=== PATIENT | male | born 1960 | race Two or more races ===

== ENCOUNTER 2020-04-10 13:30 | Inpatient (IN) | payer MEDICAID, OTHER ==
[~2020-04-10] VITALS: Ht 177.8 cm; Wt 108.9 kg
[2020-04-10 18:23] LABS: Basophils # (auto) 0 10 ^3/uL (0-0.2); Basophils % (auto) 0.3 % (0.0-2.0); Eosinophils # (auto) 0 10 ^3/uL (0-0.8); Hemoglobin 13.8 g/dL (13.5-17.5); Lymphocytes # (auto) 0.3 10 ^3/uL (0.4-5.4)
[2020-04-10 18:25] LABS: Eosinophils % (auto) 0.4 % (0.0-7.0); Hematocrit 39.4 % (41.0-53.0); Mean Corpuscular Hemoglobin 38.2 pg (28.0-32.0); Mean Corpuscular Hgb Conc. 35.1 g/dL (32.0-36.0); Monocytes # (auto) 0.4 10 ^3/uL (0-1.3); Monocytes % (auto) 8.1 % (0.0-12.0); Neutrophils # (auto) 4.1 10 ^3/uL (1.6-8.6); Neutrophils % (auto) 84.2 % (37.0-80.0); Platelet Count (auto) 56 10^3/uL (140-450); Red Blood Cells 3.61 10^6/uL (4.5-5.90); Red Cell Distribution Width 14.4 % (11.8-14.3); White Blood Cell 4.9 10^3/uL (4.4-10.8)
[2020-04-10 18:39] LABS: Albumin 2.5 g/dL (3.4-5.0); Anion Gap 5 (5-15); Blood Urea Nitrogen 19 mg/dL (7-18); Calcium 8.7 mg/dL (8.5-10.1); Carbon Dioxide 24 mmol/L (21-32); Chloride 109 mmol/L (98-107); Glucose 291 mg/dL (74-106); Potassium 4.6 mmol/L (3.5-5.1); Sodium 138 mmol/L (136-145)
[2020-04-10 18:44] LABS: Blood Alcohol < 3.0 mg/dL (0-5); Magnesium 2.3 mg/dL (1.6-2.6)
[2020-04-10 18:45] LABS: Alanine Aminotransferase 40 U/L (16-61); Alkaline Phosphatase 163 U/L (45-117); Aspartate Aminotransferase 55 U/L (15-37); BUN/Creatinine Ratio 10.9; Bilirubin, Total 2.4 mg/dL (0.2-1.0); GFR African American 52 mL/min; GFR Non-African American 43 mL/min
[2020-04-10 18:52] LABS: CRP High Sensitivity 1.12 mg/dL (< 0.3)
[2020-04-11] MEDS ORDERED: NITROGLYCERIN 0.4 MG SL TAB SL PRN (01:30)
[2020-04-11] MEDS ORDERED: LACTULOSE 20Gm/30ML SOLN PO ONE (01:30)
[2020-04-11] MEDS ORDERED: MORPHINE SULF INJ 2 MG/ML SYRINGE 1ML IV PRN (01:30)
[2020-04-11] MEDS ORDERED: DEXTROSE (50%) 50ML SYRG IV PRN (01:30)
[2020-04-11] MEDS ORDERED: ONDANSETRON HCL 4 MG/2 ML VIAL IV PRN (01:30)
[2020-04-11] MEDS: SODIUM CHLORIDE 0.9% 1,000 ML IV SCH ×2 (02:05→09:37)
[2020-04-11] MEDS ORDERED: LACTULOSE 20Gm/30ML SOLN PO SCH (06:00)
[2020-04-11 06:53] LABS: Basophils # (auto) 0 10 ^3/uL (0-0.2); Eosinophils # (auto) 0.1 10 ^3/uL (0-0.8); Mean Corpuscular Hgb Conc. 34.7 g/dL (32.0-36.0); Monocytes # (auto) 0.4 10 ^3/uL (0-1.3); Neutrophils # (auto) 3.3 10 ^3/uL (1.6-8.6); Nucleated Red Blood Cells % 0.2 %; Platelet Count (auto) 61 10^3/uL (140-450); White Blood Cell 4.6 10^3/uL (4.4-10.8)
[2020-04-11 06:56] LABS: Basophils % (auto) 0.7 % (0.0-2.0); Eosinophils % (auto) 2.6 % (0.0-7.0); Hematocrit 41.4 % (41.0-53.0); Hemoglobin 14.4 g/dL (13.5-17.5); Lymphocytes # (auto) 0.7 10 ^3/uL (0.4-5.4); Lymphocytes % (auto) 15.1 % (10.0-50.0); Mean Corpuscular Hemoglobin 38.2 pg (28.0-32.0); Mean Corpuscular Volume 110.1 fL (80.0-100.0); Neutrophils % (auto) 72.6 % (37.0-80.0); Red Blood Cells 3.76 10^6/uL (4.5-5.90); Red Cell Distribution Width 14.5 % (11.8-14.3)
[2020-04-11 07:06] LABS: Potassium 4.1 mmol/L (3.5-5.1)
[2020-04-11 07:18] LABS: Albumin 2.7 g/dL (3.4-5.0); BUN/Creatinine Ratio 13.9; Calcium 9.1 mg/dL (8.5-10.1); Total Protein 7.6 g/dL (6.4-8.2)
[2020-04-11] MEDS: ACCU-CHEK COMFORT CURVE STRIP VI SCH ×2 (08:04→12:00)
[2020-04-11] MEDS: InsuLIN REG 1unit/0.01ml Soln (100units/ml) SC SCH ×2 (08:11→12:00)
[2020-04-11 09:50] VITALS: BP 128/74
== END 2020-04-11 12:11 | disposition home or self-care (01) | DRG 279 ==
LOC: ER 13:30 → EDBD 13:30 → TELE 13:31
PROVIDERS: ADMIT Hospitalist; ATTEND Hospitalist
DX: K72.90 Hepatic failure, unspecified without coma (principal); E83.41 Hypermagnesemia; K74.60 Unspecified cirrhosis of liver; N17.0 Acute kidney failure with tubular necrosis; E88.09 Other disorders of plasma-protein metabolism, not elsewhere classified; E66.01 Morbid (severe) obesity due to excess calories; Z68.34 Body mass index [BMI] 34.0-34.9, adult; Z20.828 Contact with and (suspected) exposure to other viral communicable diseases; J98.11 Atelectasis
CPT/HCPCS: 36415; 70450; 71045; 80053; 80320; 82140; 82728; 82962; 83735; 84484; 85025; 86141; 87426; 99291; G0378; J1815

== ENCOUNTER 2020-07-24 15:56 | Inpatient (IN) | payer MEDICAID ==
[~2020-07-24] VITALS: Ht 177.8 cm; Wt 122.7 kg
[2020-07-24 18:12] LABS: Eosinophils # (auto) 0.1 10 ^3/uL (0-0.8); Lymphocytes # (auto) 0.5 10 ^3/uL (0.4-5.4); Monocytes # (auto) 0.5 10 ^3/uL (0-1.3); White Blood Cell 5.1 10^3/uL (4.4-10.8)
[2020-07-24 18:14] LABS: Basophils # (auto) 0 10 ^3/uL (0-0.2); Basophils % (auto) 0.6 % (0.0-2.0); Eosinophils % (auto) 1.5 % (0.0-7.0); Hematocrit 35.7 % (41.0-53.0); Hemoglobin 12.4 g/dL (13.5-17.5); Lymphocytes % (auto) 9.3 % (10.0-50.0); Mean Corpuscular Hemoglobin 37.4 pg (28.0-32.0); Mean Corpuscular Hgb Conc. 34.7 g/dL (32.0-36.0); Mean Corpuscular Volume 107.9 fL (80.0-100.0); Neutrophils # (auto) 4.1 10 ^3/uL (1.6-8.6); Neutrophils % (auto) 79.6 % (37.0-80.0); Nucleated Red Blood Cells % 0.1 %; Platelet Count (auto) 76 10^3/uL (140-450); Red Blood Cells 3.31 10^6/uL (4.5-5.90); Red Cell Distribution Width 13.6 % (11.8-14.3)
[2020-07-24] MEDS ORDERED: cloNIDine HCL 0.1 MG TAB PO PRN (18:15)
[2020-07-24] MEDS ORDERED: MORPHINE SULF INJ 2 MG/ML SYRINGE 1ML IV PRN ×2 (18:15)
[2020-07-24] MEDS ORDERED: HYDROcodone-ACET 5/325MG TAB PO PRN (18:15)
[2020-07-24] MEDS ORDERED: ONDANSETRON HCL 4 MG/2 ML VIAL IV PRN (18:15)
[2020-07-24] MEDS ORDERED: NITROGLYCERIN 0.4 MG SL TAB SL PRN (18:15)
[2020-07-24] MEDS ORDERED: ACETAMINOPHEN 325 MG TAB PO PRN (18:15)
[2020-07-24] MEDS ORDERED: DEXTROSE (50%) 50ML SYRG IV PRN (18:15)
[2020-07-24] MEDS ORDERED: ALUM & MAG HYDROX-SIMETH LIQ(MAALOX) 30 ML PO PRN (18:15)
[2020-07-24] MEDS: SODIUM CHLORIDE 0.9% 1,000 ML IV SCH (18:19)
[2020-07-24 18:25] LABS: Albumin 2.3 g/dL (3.4-5.0); Anion Gap 9 (5-15); BUN/Creatinine Ratio 8.2; Blood Alcohol < 3.0 mg/dL (0-5); Blood Urea Nitrogen 13 mg/dL (7-18); Calcium 8.2 mg/dL (8.5-10.1); Carbon Dioxide 25 mmol/L (21-32); Chloride 103 mmol/L (98-107); GFR African American 58 mL/min; GFR Non-African American 48 mL/min; Glucose 337 mg/dL (74-106); Potassium 3.5 mmol/L (3.5-5.1); Sodium 137 mmol/L (136-145)
[2020-07-24 18:28] LABS: Lactic Acid w/Reflex 2.5 mmol/L (0.4-2.0)
[2020-07-24 18:36] LABS: Alanine Aminotransferase 27 U/L (16-61); Alkaline Phosphatase 142 U/L (45-117); Aspartate Aminotransferase 46 U/L (15-37); Total Protein 6.9 g/dL (6.4-8.2)
[2020-07-24 22:00] VITALS: BP 123/81
[2020-07-24 22:18] VITALS: BP 123/81
[2020-07-24 22:37] LABS: Urine Bacteria NONE SEEN /hpf (None Seen); Urine Blood Negative /uL (Negative); Urine Hyaline Cast FEW /lpf (0 - 2); Urine Specific Gravity 1.007 (1.001-1.035); Urine WBC 2 /hpf (0 - 3)
[2020-07-24 22:40] LABS: Amphetamine Screen, Urine NEGATIVE (NEGATIVE); Barbiturate Scree,Urine NEGATIVE (NEGATIVE); Benzodiazephine Screen, Urine NEGATIVE (NEGATIVE); Cannabinoid Screen, Urine NEGATIVE (NEGATIVE); Cocaine Screen, Urine NEGATIVE (NEGATIVE); Opiate Scree,Urine NEGATIVE (NEGATIVE); Phencyclidine Screen, Urine NEGATIVE (NEGATIVE)
[2020-07-24] MEDS ORDERED: KETOROLAC TROMETH 30 MG/ML 1ML VIAL IV PRN (22:45)
[2020-07-24] MEDS: LORazepam 2MG/ML-1ML VIAL IV PRN (23:30)
[2020-07-24] MEDS: ACCU-CHEK COMFORT CURVE STRIP VI SCH (23:41)
[2020-07-24] MEDS: InsuLIN REG 1unit/0.01ml Soln (100units/ml) SC SCH (23:45)
[2020-07-24] MEDS: CLINDAMYCIN 600MG IV 50 ML IV SCH (23:46)
[2020-07-24] MEDS: FAMOTIDINE (10MG/ML) 2ML VL IV SCH (23:46)
[2020-07-25] MEDS: methylPREDNISolone SOD SUCC 40 MG/ML VL IV SCH ×2 (00:13→06:16)
[2020-07-25] MEDS ORDERED: PNEUMOCOCCAL VACC POLYS 25 MCG/0.5 ML VIAL IM ONE (02:00)
[2020-07-25] MEDS ORDERED: ZINC220C8 PO (02:02)
[2020-07-25] MEDS ORDERED: INSUINJ18 SC (02:02)
[2020-07-25] MEDS ORDERED: ASCO500T11 PO (02:02)
[2020-07-25] MEDS ORDERED: INSU1INJ19 SC (02:02)
[2020-07-25] MEDS ORDERED: PROP60CA34 PO (02:02)
[2020-07-25] MEDS ORDERED: MAGN400T40 PO (02:02)
[2020-07-25] MEDS ORDERED: CHOL20007 PO (02:02)
[2020-07-25] MEDS ORDERED: B-COCAP23 PO (02:02)
[2020-07-25] MEDS ORDERED: SPIR100T4 PO (02:02)
[2020-07-25] MEDS ORDERED: FURO40TA4 PO (02:02)
[2020-07-25] MEDS ORDERED: LACT10PA2 PO (02:02)
[2020-07-25] MEDS ORDERED: RABE1TAB4 PO (02:02)
[2020-07-25] MEDS ORDERED: GABA-339 PO (02:02)
[2020-07-25] MEDS ORDERED: TIZA4TAB9 PO (02:02)
[2020-07-25] MEDS: LORazepam 2MG/ML-1ML VIAL IV PRN ×5 (03:30→21:17)
[2020-07-25 06:00] VITALS: BP 128/85
[2020-07-25] MEDS: ACCU-CHEK COMFORT CURVE STRIP VI SCH ×4 (06:09→22:50)
[2020-07-25] MEDS: CLINDAMYCIN 600MG IV 50 ML IV SCH (06:16)
[2020-07-25] MEDS: InsuLIN REG 1unit/0.01ml Soln (100units/ml) SC SCH ×4 (06:16→22:50)
[2020-07-25 09:00] VITALS: BP 126/68
[2020-07-25] MEDS: FAMOTIDINE (10MG/ML) 2ML VL IV SCH (11:13)
[2020-07-25] MEDS: SODIUM CHLORIDE 0.9% 1,000 ML IV SCH (11:13)
[2020-07-25] MEDS ORDERED: VANCOMYCIN PER PHARMACY 0 MG IV SCH (14:00)
[2020-07-25] MEDS ORDERED: PROPRANOLOL HCL PO SCH (14:00)
[2020-07-25] MEDS ORDERED: cefTRIAXone 1GM/50ML D5W 50 ML IV ONE (14:00)
[2020-07-25] MEDS ORDERED: VANCOMYCIN 1GM/250ML 250 ML IV ONE (14:30)
[2020-07-25] MEDS: LACTULOSE 20Gm/30ML SOLN PO SCH ×2 (15:58→22:51)
[2020-07-25 17:00] VITALS: BP 106/53
[2020-07-25] MEDS ORDERED: PANTOPRAZOLE 40 MG TAB PO SCH (17:30)
[2020-07-25] MEDS: FUROSEMIDE 40 MG TAB PO SCH ×2 (18:00→18:40)
[2020-07-25 20:57] LABS: Cholesterol 124 mg/dL (< 200); Triglycerides 85 mg/dL (< 150)
[2020-07-25 21:05] LABS: HDL Cholesterol 43 mg/dL (40-59)
[2020-07-25 22:00] VITALS: BP 113/68
[2020-07-25] MEDS ORDERED: PROPRANOLOL HCL 60 MG PO SCH (22:00)
[2020-07-25] MEDS: GABAPENTIN 300 MG CAP PO SCH (22:51)
[2020-07-26] MEDS: SODIUM CHLORIDE 0.9% 1,000 ML IV SCH (04:41)
[2020-07-26 05:00] VITALS: BP 115/79
[2020-07-26] MEDS ORDERED: VANCOMYCIN 1GM/250ML 250 ML IV SCH (05:00)
[2020-07-26 05:01] LABS: Urine Bacteria FEW /hpf (None Seen); Urine Blood 3+ /uL (Negative); Urine Hyaline Cast FEW /lpf (0 - 2); Urine Specific Gravity 1.015 (1.001-1.035); Urine WBC 66 /hpf (0 - 3)
[2020-07-26] MEDS: ACCU-CHEK COMFORT CURVE STRIP VI SCH ×2 (06:13→12:04)
[2020-07-26] MEDS: LACTULOSE 20Gm/30ML SOLN PO SCH ×2 (06:14→14:02)
[2020-07-26] MEDS: FUROSEMIDE 40 MG TAB PO SCH (06:14)
[2020-07-26] MEDS: InsuLIN REG 1unit/0.01ml Soln (100units/ml) SC SCH ×2 (06:17→12:04)
[2020-07-26 07:45] LABS: Basophils # (auto) 0 10 ^3/uL (0-0.2); Eosinophils # (auto) 0 10 ^3/uL (0-0.8); Hematocrit 34.1 % (41.0-53.0); Hemoglobin 11.7 g/dL (13.5-17.5); Monocytes # (auto) 0.6 10 ^3/uL (0-1.3)
[2020-07-26 07:47] LABS: Basophils % (auto) 0.1 % (0.0-2.0); Eosinophils % (auto) 0.3 % (0.0-7.0); Lymphocytes # (auto) 0.5 10 ^3/uL (0.4-5.4); Lymphocytes % (auto) 7.4 % (10.0-50.0); Mean Corpuscular Hemoglobin 37.6 pg (28.0-32.0); Mean Corpuscular Hgb Conc. 34.3 g/dL (32.0-36.0); Mean Corpuscular Volume 109.6 fL (80.0-100.0); Monocytes % (auto) 8.4 % (0.0-12.0); Neutrophils % (auto) 83.8 % (37.0-80.0); Platelet Count (auto) 62 10^3/uL (140-450); Red Blood Cells 3.11 10^6/uL (4.5-5.90); White Blood Cell 7.2 10^3/uL (4.4-10.8)
[2020-07-26 08:00] LABS: Calcium 8.5 mg/dL (8.5-10.1); Potassium 4.1 mmol/L (3.5-5.1)
[2020-07-26 08:02] LABS: BUN/Creatinine Ratio 17.2
[2020-07-26] MEDS ORDERED: cefTRIAXone 1GM/50ML D5W 50 ML IV SCH (09:00)
[2020-07-26 09:09] VITALS: BP 99/58
[2020-07-26] MEDS: GABAPENTIN 300 MG CAP PO SCH (09:37)
[2020-07-26] MEDS ORDERED: INSULIN LANTUS (GLARGINE) 1 /0.01ml (100units/ml) SC SCH (10:00)
[2020-07-26] MEDS ORDERED: SPIRONOLACTONE 25 MG TAB PO SCH (10:00)
[2020-07-26 12:22] LABS: LDL Cholesterol 81 mg/dL (< 100)
[2020-07-26 13:00] VITALS: BP 102/63
[2020-07-26 16:58] VITALS: BP 102/72
[2020-07-26] MEDS ORDERED: ATORVASTATIN 20 MG TAB PO SCH (22:00)
== END 2020-07-26 16:17 | disposition left against medical advice (07) | DRG 279 ==
LOC: ER 15:56 → EDBD 15:56 → TELE 18:09 → TELE-EAST 22:22
PROVIDERS: ADMIT Hospitalist; ATTEND Hospitalist
PROC: 3E0234Z Introduction of Serum, Toxoid and Vaccine into Muscle, Percutaneous Approach (ICD-10-PCS; principal; 2020-07-25)
DX: K72.90 Hepatic failure, unspecified without coma (principal); J96.01 Acute respiratory failure with hypoxia; I63.89 Other cerebral infarction; G93.41 Metabolic encephalopathy; I85.10 Secondary esophageal varices without bleeding; E44.1 Mild protein-calorie malnutrition; D68.4 Acquired coagulation factor deficiency; D69.6 Thrombocytopenia, unspecified; R56.9 Unspecified convulsions; E66.01 Morbid (severe) obesity due to excess calories; Z20.822 Contact with and (suspected) exposure to COVID-19; I12.9 Hypertensive chronic kidney disease with stage 1 through stage 4 chronic kidney disease, or unspecified chronic kidney disease; N18.9 Chronic kidney disease, unspecified; Z82.49 Family history of ischemic heart disease and other diseases of the circulatory system; Z83.3 Family history of diabetes mellitus; Z88.5 Allergy status to narcotic agent; Z68.38 Body mass index [BMI] 38.0-38.9, adult; Z53.29 Procedure and treatment not carried out because of patient's decision for other reasons; J98.11 Atelectasis; Z23 Encounter for immunization
CPT/HCPCS: 36415; 36600; 51702; 70450; 70551; 71250; 76775; 80048; 80053; 80061; 80307; 80320; 81001; 82140; 82805; 82962; 83605; 83735; 83880; 84484; 85025; 87040; 87077; 87186; 87426; 92610; 93306; 93886; 96361; 96374; 99291; G0378; J0696; J1815; J1885; J3490